=== PATIENT | female | born 1965 | race Caucasian/White ===

== ENCOUNTER 2018-03-19 11:38 | Emergency (ER) | payer BC, OTHER ==
--- NOTE | 2018-03-19 12:21 | EDM.PDOC ---
ED HPI GENERAL MEDICAL PROBLEM - General Chief Complaint: General Stated Complaint: VERTIGO FOR 2 DAYS Time Seen by Provider: 03/19/18 12:05 Source of Information: Reports: Patient History Limitations: Reports: No Limitations - History of Present Illness INITIAL COMMENTS - FREE TEXT/NARRATIVE: 52-year-old female, relatively healthy has had a problem with brief episodes of lightheadedness and dizziness over the past several days. The only lasts 2 or 3 minutes, no headache, fever, some nausea but no vomiting. No recent illness. Onset: Gradual (Over the past 7-10 days) Duration: Minutes: (Spells last just 2-3 minutes) Associated Symptoms: Reports: Other (Only other symptom is mild nausea and a sensation of unsteadiness). Denies: Confusion, Chest Pain, Fever/Chills, Headaches, Shortness of Breath, Weakness - Related Data Allergies Allergy/AdvReac Type Severity Reaction Status Date / Time atorvastatin calcium Allergy Mild Liver Verified 03/19/18 11:51 [From Lipitor] Problems cephalexin [Cephalexin] Allergy Mild Rash Verified 03/19/18 11:51 cephalexin monohydrate Allergy Rash Verified 03/19/18 11:51 [From Keflex] Home Meds: Home Meds Aspirin [Low Dose Aspirin EC] 81 mg PO DAILY 09/13/13 [History] Carbidopa/Levodopa [Sinemet 25-100 mg] 25 - 50 mg PO DAILY 09/13/13 [History] Estradiol [Estrace] 0.5 mg PO Q48H 09/13/13 [History] Lansoprazole [Prevacid] 15 mg PO DAILY PRN 09/13/13 [History] Levothyroxine [Synthroid] 50 mcg PO DAILY 09/13/13 [History] Multivitamin [Tab A Mana] 1 tab PO DAILY 09/13/13 [History] Multivitamin with Minerals [Multivitamins with Minerals] 1 tab PO BID 09/13/13 [ History] Propranolol [Inderal LA 24 Hr] 80 mg PO DAILY 09/13/13 [History] Vitamin B Complex 1 ml PO DAILY 09/13/13 [History] Past Medical History Endocrine/Metabolic History: Reports: Hypothyroidism - Infectious Disease History Infectious Disease History: Reports: Chicken Pox - Past Surgical History GI Surgical History: Reports: Appendectomy, Bariatric Procedure, Cholecystectomy Female Surgical History: Reports: Hysterectomy, Salpingo-Oophorectomy Social & Family History - Tobacco Use Smoking Status *Q: Former Smoker Years of Tobacco use: 30 Used Tobacco, but Quit: Yes Month/Year Tobacco Last Used: 2016 Second Hand Smoke Exposure: No - Caffeine Use Caffeine Use: Reports: Coffee - Alcohol Use Days Per Week of Alcohol Use: 0 Number of Drinks Per Day: 3 Total Drinks Per Week: 0 - Recreational Drug Use Recreational Drug Use: No ED ROS GENERAL - Review of Systems Review Of Systems: See Below Constitutional: Denies: Fever, Chills, Malaise HEENT: Denies: Ear Pain Respiratory: Denies: Shortness of Breath Cardiovascular: Denies: Chest Pain, Palpitations Endocrine: Denies: Fatigue GI/Abdominal: Reports: Nausea. Denies: Abdominal Pain, Vomiting : Reports: No Symptoms Skin: Reports: No Symptoms Neurological: Denies: Headache Psychiatric: Reports: No Symptoms ED EXAM, GENERAL - Physical Exam Exam: See Below Exam Limited By: No Limitations General Appearance: Alert, No Apparent Distress Eye Exam: Bilateral Eye: EOMI, Normal Inspection Ears: Normal TMs Throat/Mouth: Normal Inspection Head: Atraumatic, Normocephalic Respiratory/Chest: No Respiratory Distress, Lungs Clear Cardiovascular: Regular Rate, Rhythm. No: Extra Beats Neurological: Alert, Oriented, No Motor/Sensory Deficits Skin Exam: Warm, Dry Course - Vital Signs Last Recorded V/S: Last Vital Signs Temp 98.1 F 03/19/18 13:26 Pulse 48 L 03/19/18 13:26 Resp 16 03/19/18 13:26 BP 140/69 03/19/18 13:26 Pulse Ox 96 03/19/18 13:26 - Orders/Labs/Meds Orders: Active Orders 24 hr Category Date Time Status Cardiac Monitoring [RC] .As Directed Care 03/19/18 12:19 Active Labs: Laboratory Tests 03/19/18 03/19/18 Range/Units 12:14 12:14 WBC 5.7 (4.5-11.0) K/uL RBC 3.91 (3.30-5.50) M/uL Hgb 13.0 (12.0-15.0) g/dL Hct 39.9 (36.0-48.0) % MCV 102 H (80-98) fL MCH 33 H (27-31) pg MCHC 33 (32-36) % Plt Count 219 (150-400) K/uL Neut % (Auto) 44 (36-66) % Lymph % (Auto) 44 (24-44) % Orange % (Auto) 10 H (2-6) % Eos % (Auto) 1 L (2-4) % Baso % (Auto) 1 (0-1) % Sodium 143 (140-148) mmol/L Potassium 4.5 (3.6-5.2) mmol/L Chloride 104 (100-108) mmol/L Carbon Dioxide 28 (21-32) mmol/L Anion Gap 10.6 (5.0-14.0) mmol/L BUN 11 (7-18) mg/dL Creatinine 0.9 (0.6-1.0) mg/dL Est Cr Clr Drug Dosing 66.90 mL/min Estimated GFR (MDRD) > 60 (>60) Glucose 115 H (74-106) mg/dL Calcium 8.8 (8.5-10.1) mg/dL Total Bilirubin 0.3 (0.2-1.0) mg/dL AST 96 H (15-37) U/L ALT 68 (12-78) U/L Alkaline Phosphatase 194 H (46-116) U/L Total Protein 7.7 (6.4-8.2) g/dL Albumin 3.3 L (3.4-5.0) g/dL Globulin 4.4 H (2.3-3.5) g/dL Albumin/Globulin Ratio 0.8 L (1.2-2.2) TSH, Ultra Sensitive 4.827 H (0.358-3.740) uIU/mL - Re-Assessments/Exams Free Text/Narrative Re-Assessment/Exam: 03/19/18 12:21 CBC, CMP and TSH were obtained. Patient was placed on cardiac monitoring. 03/19/18 13:05 CBC was normal, cardiac monitoring was stable. CMP was basically normal but her AST and alkaline phosphatase were elevated. I asked the patient if she had consumed alcohol recently and she admitted she drank yesterday, and drinks fairly often. This may be related to her symptoms. 03/19/18 13:06 I asked the patient to stay hydrated and avoid alcohol for the next few days and see if the symptoms resolve. If they do not a Holter monitor may be indicated or other further evaluation or testing. Departure - Departure Time of Disposition: 13:28 Disposition: Home, Self-Care 01 Condition: Good Clinical Impression: Dizziness, nonspecific - Discharge Information Instructions: Dizziness, [id number] Referrals: PCP,None [Primary Care Provider] - Forms: ED Department Discharge Care Plan Goals: Rest, stay hydrated, and avoid alcohol for the next several days to see if symptoms improve. Return anytime if worsening such as shortness of breath or fever. Recheck in 2-3 days if not improving satisfactorily. - My Orders Last 24 Hours: My Active Orders 03/19/18 12:19 Cardiac Monitoring [RC] .As Directed - Assessment/Plan Last 24 Hours: My Active Orders 03/19/18 12:19 Cardiac Monitoring [RC] .As Directed
== END 2018-03-19 13:28 | disposition home or self-care (01) ==
LOC: JP.ED 11:38
DX: R42 Dizziness and giddiness (principal); Z87.891 Personal history of nicotine dependence; Z79.82 Long term (current) use of aspirin; Z88.1 Allergy status to other antibiotic agents; Z88.8 Allergy status to other drugs, medicaments and biological substances; Z79.899 Other long term (current) drug therapy
CPT/HCPCS: 36415; 80053; 84443; 85025; 99284